=== PATIENT | male | born 1955 | race Caucasian/White ===

== ENCOUNTER → 2016-07-05 | Outpatient (REF) | payer BC ==
[2016-07-05 11:36] LABS: BASO % 0.7 % (0.0-1.0); EOS # 0.5 K/mm3 (0.0-0.50); LARGE UNSTAINED CELL # 0.3 K/mm3 (0.0-0.4); LARGE UNSTAINED CELL % 3.8 % (0.0-4.0); LYMPH # 1.4 K/mm3 (1.5-4.5); MEAN CORPUSCULAR HEMOGLOBIN 31.9 pg (27.0-33.0); MEAN CORPUSCULAR HGB CONC 35.1 g/dl (32.0-36.5); MONO # 0.5 K/mm3 (0.0-0.8); MONO % 8.1 % (0.0-5.0); NEUTROPHILS # 3.8 K/mm3 (1.8-7.7); NEUTROPHILS % 57.4 % (36.0-66.0); PLATELET COUNT, AUTOMATED 197 k/mm3 (150-450); RED CELL DISTRIBUTION WIDTH 12.2 % (11.5-14.5); WHITE BLOOD COUNT 6.6 K/mm3 (4.0-10.0)
[2016-07-05 12:18] LABS: ALBUMIN/GLOBULIN RATIO 1.29 (1.00-1.93); ALKALINE PHOSPHATASE 104 U/L (45-117); ALT/SGPT 39 U/L (12-78); ANION GAP 8 MEQ/L (8-16); AST/SGOT 18 U/L (15-37); BILIRUBIN,TOTAL 1.9 MG/DL (0.2-1.0); BLOOD UREA NITROGEN 21 MG/DL (7-18); CALCIUM LEVEL 9.3 MG/DL (8.8-10.2); CARBON DIOXIDE LEVEL 29 MEQ/L (21-32); CHLORIDE LEVEL 106 MEQ/L (98-107); CHOLESTEROL LEVEL 213 MG/DL (<200); CREATININE FOR GFR 1.03 MG/DL (0.70-1.30); GLOMERULAR FILTRATION RATE > 60.0 (>49); GLUCOSE, FASTING 97 MG/DL (80-110); POTASSIUM SERUM 4.6 MEQ/L (3.5-5.1); SODIUM LEVEL 143 MEQ/L (136-145); TOTAL PROTEIN 7.1 GM/DL (6.4-8.2); TRIGLYCERIDES LEVEL 113 MG/DL (<150)
== END ==
LOC: M SFHCPLAZ 10:59
PROVIDERS: ATTEND Nurse Practitioner Family
DX: K21.9 Gastro-esophageal reflux disease without esophagitis (principal); Z11.59 Encounter for screening for other viral diseases; Z13.220 Encounter for screening for lipoid disorders; Z12.5 Encounter for screening for malignant neoplasm of prostate
CPT/HCPCS: 36415; 80053; 80061; 84443; 85025; 86803; G0103

== ENCOUNTER → 2017-02-04 | Outpatient (CLI) | payer BC ==
[2017-02-04 13:45] LABS: ALBUMIN 3.8 GM/DL (3.2-5.2); ALBUMIN/GLOBULIN RATIO 1.12 (1.00-1.93); ALKALINE PHOSPHATASE 98 U/L (45-117); ALT/SGPT 32 U/L (12-78); ANION GAP 7 MEQ/L (8-16); AST/SGOT 19 U/L (15-37); BILIRUBIN,TOTAL 1.8 MG/DL (0.2-1.0); BLOOD UREA NITROGEN 16 MG/DL (7-18); CARBON DIOXIDE LEVEL 29 MEQ/L (21-32); CHLORIDE LEVEL 104 MEQ/L (98-107); CHOLESTEROL LEVEL 195 MG/DL (<200); CREATININE FOR GFR 0.86 MG/DL (0.70-1.30); GLOMERULAR FILTRATION RATE > 60.0 (>49); GLUCOSE, FASTING 95 MG/DL (80-110); POTASSIUM SERUM 4.7 MEQ/L (3.5-5.1); SODIUM LEVEL 140 MEQ/L (136-145); TOTAL PROTEIN 7.2 GM/DL (6.4-8.2); TRIGLYCERIDES LEVEL 130 MG/DL (<150)
== END ==
LOC: M WUC 08:50
PROVIDERS: ATTEND Nurse Practitioner Family
DX: E78.4 Other hyperlipidemia (principal)

== ENCOUNTER → 2018-09-14 | Outpatient (CLI) | payer BC ==
[~2018-09-14] MED LIST: ASPI1TAB PO; MULTTAB PO; OMEG10002 PO; OMEP40CA2 PO
[2018-09-14 10:21] LABS: HEMATOCRIT 47.2 % (42.0-52.0); HEMOGLOBIN 16.1 g/dl (13.5-17.5); MEAN CORPUSCULAR VOLUME 90.8 fl (80.0-96.0); PLATELET COUNT, AUTOMATED 213 10^3/uL (150-450); WHITE BLOOD COUNT 6.4 10^3/uL (4.0-10.0)
[2018-09-14 10:26] LABS: MEAN CORPUSCULAR HGB CONC 34.1 g/dl (32.0-36.5)
[2018-09-14 10:27] LABS: ALBUMIN 3.9 GM/DL (3.2-5.2); ALT/SGPT 40 U/L (12-78); BILIRUBIN,TOTAL 1.5 MG/DL (0.2-1.0); BLOOD UREA NITROGEN 20 MG/DL (7-18); CARBON DIOXIDE LEVEL 31 MEQ/L (21-32); CHLORIDE LEVEL 104 MEQ/L (98-107); CHOLESTEROL LEVEL 214 MG/DL (<200); CHOLESTEROL RISK RATIO 4.458 (<5); GLOMERULAR FILTRATION RATE > 60.0 (>49); GLUCOSE, FASTING 101 MG/DL (70-100); HDL CHOLESTEROL 48 MG/DL (>40); LDL CHOLESTEROL 148 MG/DL (<100); NON-HDL-C 166 MG/DL; POTASSIUM SERUM 4.8 MEQ/L (3.5-5.1); SODIUM LEVEL 139 MEQ/L (136-145); TOTAL PROTEIN 6.9 GM/DL (6.4-8.2); TRIGLYCERIDES LEVEL 88 MG/DL (<150)
[2018-09-14 10:36] LABS: VITAMIN B12 LEVEL 620 PG/ML (247-911)
[2018-09-16 00:07] LABS: HOMOCYST(E)INE SERUM 9.4 umol/L (0.0-15.0)
== END ==
LOC: M WUC 08:22
PROVIDERS: ATTEND Family Medicine
DX: K21.9 Gastro-esophageal reflux disease without esophagitis (principal); E78.49 Other hyperlipidemia; N52.9 Male erectile dysfunction, unspecified

== ENCOUNTER → 2019-03-30 | Outpatient (CLI) | payer BC ==
[~2019-03-30] MED LIST changes: -ASPI1TAB PO; +ASPI81TA26 PO
[2019-03-30 10:26] LABS: ALBUMIN 3.7 GM/DL (3.2-5.2); BILIRUBIN,DIRECT 0.3 MG/DL (0.0-0.2); BILIRUBIN,TOTAL 1.4 MG/DL (0.2-1.0); CHOLESTEROL RISK RATIO 2.74 (<5); TOTAL PROTEIN 6.8 GM/DL (6.4-8.2)
== END ==
LOC: M WUC 08:03
PROVIDERS: ATTEND Family Medicine
DX: E78.00 Pure hypercholesterolemia, unspecified (principal)

== ENCOUNTER 2019-06-02 08:28 | Day surgery (SDC) | payer BC ==
[~2019-06-02] VITALS: Ht 177.8 cm; Wt 83.9 kg
[~2019-06-02 08:28] MED LIST changes: +LIDOCAINE 2% INJ 100 MG/5 ML SDV (FOR ANES.) As Ordered ONE; +MULTCAP PO; +NS 1,000 ML IV ONE; -OMEP40CA2 PO; +OMEP40CA97 PO; +PROPOFOL 200 MG/20 ML VIAL As Ordered ONE
[2019-06-02] MEDS ORDERED: PROPOFOL 200 MG/20 ML VIAL As Ordered ONE (09:43)
--- NOTE | 2019-06-02 09:53 | ROOR ---
Patient Name: Shawn Restrepo Procedure Date: 06/02/2019 9:29 AM Date of : 1955 Age: 63 Room: [facility] Gender: Male Note Status: Finalized Procedure: Total Colonoscopy to Cecum + ileoscopy Indications: High risk colon cancer surveillance: Personal history of colonic polyps, Last colonoscopy: 2013 Providers: Dagoberto Torres MD Referring MD: ALEXA PHOENIX MD Requesting Provider: Medicines: Monitored Anesthesia Care Complications: No immediate complications. Procedure: Pre-Anesthesia Assessment: - The heart rate, respiratory rate, oxygen saturations, blood pressure, adequacy of pulmonary ventilation, and response to care were monitored throughout the procedure. The Colonoscope was introduced through the anus and advanced to the terminal ileum, with identification of the appendiceal orifice and IC valve. The colonoscopy was performed without difficulty. The patient tolerated the procedure well. The quality of the bowel preparation was excellent. Findings: The perianal and digital rectal examinations were normal. Non-bleeding internal hemorrhoids were found during retroflexion. The hemorrhoids were small and Grade I (internal hemorrhoids that do not prolapse). Multiple small and large-mouthed diverticula were found in the recto-sigmoid colon, sigmoid colon and descending colon. The exam was otherwise without abnormality on direct and retroflexion views. The terminal ileum appeared normal. The exam was otherwise without abnormality. Impression: - Non-bleeding internal hemorrhoids. - Diverticulosis in the recto-sigmoid colon, in the sigmoid colon and in the descending colon. - The examination was otherwise normal on direct and retroflexion views. - The examined portion of the ileum was normal. - The examination was otherwise normal. - No specimens collected. - The exam was otherwise normal to the cecum. Recommendation: - Patient has a contact number available for emergencies. The signs and symptoms of potential delayed complications were discussed with the patient. Return to normal activities tomorrow. Written discharge instructions were provided to the patient. - High fiber diet. - Discharge patient to home. - Continue present medications. - Repeat colonoscopy in 5 years for screening purposes. - Return to referring physician. - The findings and recommendations were discussed with the patient's family. Dagoberto Torres MD Dagoberto Torres MD 06/02/2019 9:53:15 AM Electronically signed by Dagoberto Torres MD Number of Addenda: 0 Note Initiated On: 06/02/2019 9:29 AM Estimated Blood Loss: Estimated blood loss: none.
[2019-06-02 10:05] VITALS: BP 179/88
== END 2019-06-02 10:20 | disposition home or self-care (01) ==
LOC: M OPP 08:28
PROVIDERS: ATTEND Internal Medicine Gastroenterology
DX: Z12.11 Encounter for screening for malignant neoplasm of colon (principal); Z86.010 Personal history of colon polyps; K64.0 First degree hemorrhoids; K57.30 Diverticulosis of large intestine without perforation or abscess without bleeding; Z79.82 Long term (current) use of aspirin

== ENCOUNTER → 2020-11-23 | Outpatient (CLI) | payer BC ==
[~2020-11-23] MED LIST changes: -LIDOCAINE 2% INJ 100 MG/5 ML SDV (FOR ANES.) As Ordered ONE; -NS 1,000 ML IV ONE; -PROPOFOL 200 MG/20 ML VIAL As Ordered ONE
[2020-11-23 12:02] LABS: ALBUMIN 3.8 GM/DL (3.2-5.2); ALT/SGPT 44 U/L (12-78); BILIRUBIN,TOTAL 1.6 MG/DL (0.2-1.0); BLOOD UREA NITROGEN 16 MG/DL (7-18); CALCIUM LEVEL 9.1 MG/DL (8.8-10.2); CARBON DIOXIDE LEVEL 28 MEQ/L (21-32); CHLORIDE LEVEL 107 MEQ/L (98-107); CHOLESTEROL LEVEL 156 MG/DL (<200); CREATININE FOR GFR 0.81 MG/DL (0.70-1.30); GLOMERULAR FILTRATION RATE > 60.0 (>49); GLUCOSE, FASTING 88 MG/DL (70-100); HDL CHOLESTEROL 52 MG/DL (>40); LDL CHOLESTEROL 94 MG/DL (<100); NON-HDL-C 104 MG/DL; POTASSIUM SERUM 4.5 MEQ/L (3.5-5.1); SODIUM LEVEL 140 MEQ/L (136-145); TOTAL PROTEIN 6.8 GM/DL (6.4-8.2); TRIGLYCERIDES LEVEL 52 MG/DL (<150)
== END ==
LOC: M WUC 09:42
PROVIDERS: ATTEND Family Medicine
DX: E78.00 Pure hypercholesterolemia, unspecified (principal); E80.6 Other disorders of bilirubin metabolism; R73.01 Impaired fasting glucose

== ENCOUNTER → 2021-12-11 | Outpatient (CLI) | payer BC ==
[~2021-12-11] MED LIST changes: +OMEP40CA4 PO; -OMEP40CA97 PO
== END ==
LOC: M WHC 08:18
PROVIDERS: ATTEND Family Medicine
DX: Z13.6 Encounter for screening for cardiovascular disorders (principal)

== ENCOUNTER → 2021-12-11 | Outpatient (CLI) | payer BC ==
[2021-12-11 13:56] LABS: HEMATOCRIT 48.4 % (42.0-52.0); HEMOGLOBIN 16.4 g/dl (13.5-17.5); MEAN CORPUSCULAR HEMOGLOBIN 31.4 pg (27.0-33.0); MEAN CORPUSCULAR HGB CONC 33.9 g/dl (32.0-36.5); MEAN CORPUSCULAR VOLUME 92.5 fl (80.0-96.0); PLATELET COUNT, AUTOMATED 241 10^3/uL (150-450); RED BLOOD COUNT 5.23 10^6/uL (4.30-6.10); WHITE BLOOD COUNT 6.6 10^3/uL (4.0-10.0)
[2021-12-11 14:25] LABS: ALBUMIN 3.7 GM/DL (3.2-5.2); ALT/SGPT 40 U/L (12-78); BILIRUBIN,TOTAL 1.6 MG/DL (0.2-1.0); BLOOD UREA NITROGEN 18 MG/DL (7-18); CALCIUM LEVEL 9.5 MG/DL (8.8-10.2); CARBON DIOXIDE LEVEL 28 MEQ/L (21-32); CHLORIDE LEVEL 107 MEQ/L (98-107); CHOLESTEROL LEVEL 155 MG/DL (<200); CREATININE FOR GFR 0.91 MG/DL (0.70-1.30); GLOMERULAR FILTRATION RATE > 60.0 (>49); GLUCOSE, FASTING 91 MG/DL (70-100); HDL CHOLESTEROL 50 MG/DL (>40); LDL CHOLESTEROL 81 MG/DL (<100); NON-HDL-C 105 MG/DL; POTASSIUM SERUM 4.8 MEQ/L (3.5-5.1); SODIUM LEVEL 141 MEQ/L (136-145); TOTAL PROTEIN 6.9 GM/DL (6.4-8.2); TRIGLYCERIDES LEVEL 119 MG/DL (<150)
[2021-12-11 14:33] LABS: VITAMIN B12 LEVEL 573 PG/ML (247-911)
== END ==
LOC: M PLALAB 09:12
PROVIDERS: ATTEND Family Medicine
DX: E78.00 Pure hypercholesterolemia, unspecified (principal)

== ENCOUNTER → 2023-05-01 | Outpatient (REF) | payer MEDICARE | LOC: M SFHCPLAZ 14:49 | PROVIDERS: ATTEND Family Medicine | DX: Z13.6 Encounter for screening for cardiovascular disorders (principal); E78.00 Pure hypercholesterolemia, unspecified; K44.9 Diaphragmatic hernia without obstruction or gangrene; K21.9 Gastro-esophageal reflux disease without esophagitis; E80.6 Other disorders of bilirubin metabolism ==